=== PATIENT | male | born 1960 | race Caucasian/White ===

== ENCOUNTER 2018-02-16 20:18 | Observation (INO) ==
--- NOTE | 2018-02-16 20:51 | Emergency Department Note ---
Disposition Clinical Impression: Chest pain of uncertain etiology, Accelerated essential hypertension Nausea & vomiting Qualifiers: Vomiting type: unspecified Vomiting Intractability: unspecified Qualified Code( s): R11.2 - Nausea with vomiting, unspecified Migraine Qualifiers: Migraine type: without aura Status migrainosus presence: without status migrainosus Intractability: not intractable Qualified Code(s): G43.009 - Migraine without aura, not intractable, without status migrainosus Disposition: Admitted As Inpatient Condition: Good Time of Disposition: 22:52 General Adult HPI - General Chief complaint: ED Nausea/Vomiting/Diarrhea Stated complaint: high bp/vomiting Time Seen by Provider: 02/16/18 20:30 Source: patient Limitations: no limitations Nursing Notes Reviewed: Yes Vital Signs Reviewed: Yes - History of Present Illness HPI Narrative: Mr. Salazar, 57yo male, presents with 10 day history of "blood pressure problem. " Since onset, he has had constant dull headache with intermittent sharp stabbing located retro-orbital. He has associated weakness and chest heaviness which is otherwise difficult for him to provide additional information. He has had 6 episodes of emesis since 2 PM today (nonbilious, non-bloody). He saw his primary care provider this morning who doubled his hydralazine to 50 mg in doubled his spiral lactone to 50 mg. He took 25 mg of hydralazine his right lactone this morning. At 2 PM, he took an additional 50 mg of hydralazine and 25 mg spironolactone. Shortly after this, he had his first bout of emesis. In the past 2 days, patient has had several antihypertensive medication changes as both his primary care practitioner as well as top steep tender are tempting to manage his blood pressures. PMH: Hypertension, shortness sleep apnea. No history of CAD or ACS. Does have familial history of heart disease. Next ROS: Positive: As above Negative: Fever, chills, palpitations, diarrhea, constipation, trauma Pain Scale: 9 - Related Data Home Medications Medication Instructions Recorded Confirmed Aspirin [Adult Aspirin Regimen] 81 mg PO DAILY 02/17/18 02/17/18 Atorvastatin [Lipitor] 40 mg PO QAM 02/17/18 02/17/18 Cholecalciferol (D-3) [Vitamin D] 1,000 unit PO DAILY 02/17/18 02/17/18 Escitalopram [Lexapro] 20 mg PO HS 02/17/18 02/17/18 LORazepam [Ativan] 0.5 - 1 mg PO HS PRN 02/17/18 02/17/18 Lisinopril [Zestril] 40 mg PO QAM 02/17/18 02/17/18 Magnesium Oxide [Magnesium] 400 mg PO HS 02/17/18 02/17/18 Multivitamin [One Daily 1 tab PO DAILY 02/17/18 02/17/18 Multivitamin] Potassium Chloride [K-Tab ER] 20 meq PO TID 02/17/18 02/17/18 Testosterone Cypionate 200 mg IM Q2W 02/17/18 02/17/18 [Depo-Testosterone] Previous Rx's Medication Instructions Recorded amLODIPine [Norvasc] 10 mg PO DAILY #60 tablet 02/18/18 Allergies Allergy/AdvReac Type Severity Reaction Status Date / Time amlodipine AdvReac See Verified 02/17/18 10:16 Comments clonidine AdvReac See Verified 02/17/18 10:16 Comments All systems ED: reviewed and negative except as stated. Review of Systems: As Per HPI Past Medical History - Past Medical History Medical history: Reports: hypertension, other Psychiatric history: Reports: anxiety, depression - Social History Smoking Status: Never smoker Smokeless Tobacco Status: No Alcohol use: Reports: none Drug use: Reports: none Physical Exam Vital Signs Reviewed General: Patient is alert, oriented, and in no acute distress. Head: atraumatic, normocephalic Eye: normal appearance, patient has a dysphoria which is baseline. EOMI, no scleral icterus, no conjunctival injection. Eyes appear bloodshot. ENT: mucous membranes moist, normal external ear exam Neck: normal inspection, trachea midline, full ROM Chest: normal inspection, symmetric chest rise Respiratory: Good respiratory effort. Bilateral breath sounds are clear without wheezing, crackles, or rhonchi. Cardiovascular: Regular rate and rhythm. No clicks, rubs, gallops, or murmors. Normal heart sounds. Abdomen: Bowel sounds present normoactive x-4 quadrants. Abdomen is soft, nondistended, and nontender. No guarding or rebound. No organomegaly noted. Musculoskeletal: Spontaneously moving all extremities. Strength 5/5 and equal bilaterally in upper and lower extremity his. Skin: warm, dry, intact. Neuro: Alert and oriented x4. Sensation light touch intact. Negative heel to jara bilaterally. Psych: Patient's affect is appropriate for situation. - General Limitations: no limitations General appearance: alert, in no apparent distress Course Course Narrative: Intake blood pressure 225/99. Bedside blood pressure is 177/105. Patient continues to be symptomatic. Will attempt symptomatic management and evaluate for end organ damage. EKG dated 02/16/10 at 20:25 interpreted as sinus rhythm with rate of 67. LA 103 , QRS 90, QTC 418. Normal axis. LVH. Pathologic Q waves and lateral leads. T -wave inversions in leads V3-V6. Compared to previous EKG dated 02/04/2012 showing new T-wave changes in leads V3-V6. Clinically concerned that the patient has chest heaviness with associated nausea and vomiting. EKG shows pathologic Q waves with new T-wave changes. Troponin is normal. Discusses the patient, he agrees to admission for continued evaluation and management of his EKG changes to assess his cardiac risks. It is uncertain at this point whether his headache is caused by his hypertension , vomiting, or combination. His headache has improved improvement in his blood pressure. BP is currently 167 systolic without IV or oral antihypertensives; this was achieved with pain control. Will hold on antihypertensive medication at this time to avoid causing iatrogenic hypotension. I discussed the above the mean hospitalist, Dr. Rangel, who agrees to accept the patient for chest pain rule out ACS as well as continue management of his accelerated essential hypertension. Vital Signs Temperature 97.9 F 02/16/18 20:25 Pulse Rate 72 02/16/18 20:25 Respiratory Rate 20 02/16/18 20:25 Blood Pressure 225/99 02/16/18 20:25 O2 Sat by Pulse Oximetry 94 02/16/18 20:25 Temperature 98.2 F 02/18/18 06:46 Pulse Rate 48 02/18/18 06:46 Respiratory Rate 14 02/18/18 06:46 Blood Pressure 148/87 02/18/18 06:46 O2 Sat by Pulse Oximetry 93 02/18/18 06:46 Oxygen Delivery Oxygen Delivery Room Air Medical Decision Making - Medical Records Medical records reviewed: Yes I reviewed the patient's medical records. - Lab Data Lab results reviewed: Yes I reviewed the patient's lab results. Result diagrams: 02/17/18 03:10 02/17/18 03:10 Lab Results 02/16/18 02/16/18 02/16/18 Range/Units 21:00 21:00 21:17 WBC 12.4 H (4.3-11.1) K/mcL RBC 6.06 H (4.19-5.50) M/mcL Hgb 17.4 H (12.9-16.9) g/dL Hct 51.3 H (37.5-50.1) % MCV 84.7 (83.0-100.0) fL MCH 28.7 (28.0-33.3) pg MCHC 33.9 (31.6-35.5) g/dL RDW 14.4 (11.5-14.5) % Plt Count 250 (140-400) K/mcL MPV 10.6 (9.4-12.4) fL Immature Gran % 0.3 (0-4) % Seg Neutrophils % 85.7 % Lymphocytes % 8.7 % Monocytes % 4.9 % Eosinophils % 0.2 % Basophils % 0.2 % Neutrophils # 10.6 H (1.6-8.9) K/mcL Lymphocytes # 1.1 (0.6-4.6) K/mcL Monocytes # 0.6 (0.0-1.3) K/mcL Eosinophils # 0.0 (0.0-0.6) K/mcL Basophils # 0.0 (0.0-0.2) K/mcL Sodium 140 (136-145) mEq/L Potassium 3.3 L (3.5-5.1) mEq/L Chloride 104 (98-107) mEq/L Carbon Dioxide 25 (23-29) mEq/L BUN 11 (6-20) mg/dL Creatinine 0.94 (0.70-1.30) mg/dL Est GFR ( Amer) > 60 (> 60) Est GFR (Non-Af Amer) > 60 (> 60) BUN/Creatinine Ratio 12 (6-26) Glucose 117 H (70-105) mg/dL Calculated Osmolality 290 (280-300) Calcium 9.6 (8.6-10.3) mg/dL Troponin I < 0.03 (< 0.04) ng/mL Urine Color Yellow (Yellow) Urine Clarity Clear (Clear) Urine pH 7.5 (5.0-8.0) pH Units Ur Specific [place] 1.014 (1.010-1.025) Urine Protein Trace (Neg-Trace) mg/dL Urine Glucose (UA) Normal (Normal) mg/dL Urine Ketones 15 H (Negative) mg/dL Urine Blood Negative (Negative) Urine Nitrite Negative (Negative) Urine Bilirubin Negative (Negative) Urine Urobilinogen Normal (Normal) mg/dL Ur Leukocyte Esterase Negative (Negative) Urine Microscopic RBC 0-3 (0-3) per hpf Urine Microscopic WBC 0-3 (0-3) per hpf Ur Squamous Epith Cells Few (None-Few) per lpf Urine Bacteria None Seen (None-Few) per hpf Hyaline Casts None Seen (None-Few) per lpf - Radiology Data Radiology results reviewed: Yes I reviewed the patient's radiology results. Chest X-Ray 02/16/18 20:51 IMPRESSION: No acute abnormality detected. D/ / Sohail Tovar MD / Sohail Tovar MD Interpreting Provider: Sohail Tovar MD Head CT 02/16/18 20:53 IMPRESSION: No acute intracranial abnormality. D/ / Danelle Miller MD / Danelle Miller MD Interpreting Provider: Danelle Miller MD Echocardiogram 02/17/18 23:29 Impressions: Blood pressure at time of study 197/103 mmHg. LVEF 60%. Mild left ventricular diastolic dysfunction. Mild concentric left ventricular hypertrophy. Normal right ventricular structure and function. No significant valvular dysfunction. No pulmonary hypertension. Left Ventricular Wall Motion: Rest Echo Findings All wall segments showed normal motion. Findings: Study Quality * Technically adequate exam. ECG Findings * Normal sinus rhythm. Left Ventricle * LVEF 60%. * Mild left ventricular diastolic dysfunction. * Mild concentric left ventricular hypertrophy. Right Ventricle * Normal right ventricular structure and function. Left Atrium * Moderately dilated left atrium. Right Atrium * Normal right atrial size. Mitral Valve * Normal mitral valve structure. * No mitral stenosis. * No mitral regurgitation. Aortic Valve * No aortic regurgitation. * Aortic valve not well visualized. * No aortic stenosis. Tricuspid Valve * Tricuspid valve not well visualized. * No tricuspid regurgitation. Pulmonic Valve * Pulmonic valve is not well visualized. * No pulmonic stenosis. * No pulmonic regurgitation. Pulmonary Artery * Pulmonary artery not well visualized. Aorta * Normally sized aortic root. Pericardium * There is no pericardial effusion present. Interatrial Septum * No evidence of PFO by color Doppler. IVC * The IVC is not well evaluated. Attestation Statement - Attestation Attestation: I examined this patient and my medical decision-making was reviewed with the Resident Physician, Dr. Azar. I agree with the documented findings, disposition and treatment plan as described except to the extent set forth below. Pt is a 57 yo wm, with hx migraine GARCIA's and HTN who presents to the ER with c/o 10 d hx of labile BP and intermittent retroorbital GARCIA's with N/V x 2 today associated with worsening GARCIA's, and elev BP. Pt also with c/o L sided CP/press with assocd diaphoresis, N/V. Pt's has had frequent changes to his BP meds over past 10 d by both his PCP and [employer], resulting in labile BP's over past 10 days, which pt feels is contributing to frequent GARCIA's. I agree with pt's PE findings as documented. Elev BP on arrival to ED, but actively vomiting on arrival. Pt's EKG shows LVH, new T wave inversions laterally from previous EKG. Pt provided pain control and nausea meds, which improved sxs and improved BP, now 160's/90's. Pt CT brain wnl, reced ASA for ACS. Pt had lab eval, CXR overall unremarkable, with neg trop. Will admit for further eval of CP, elev BP, headache, N/V. Case d/w hospitalist.
[2018-02-16] MEDS ORDERED: Ondansetron 4 MG/2 ML VIAL IVP ONE (20:58)
[2018-02-16] MEDS ORDERED: *HR* FentaNYL (PF) 100 MCG/2 ML VIAL IVP ONE ×2 (20:58→23:13)
[2018-02-16 21:11] LABS: Basophils % 0.2 %; Eosinophils % 0.2 %; Hematocrit 51.3 % (37.5-50.1); Hemoglobin 17.4 g/dL (12.9-16.9); Immature Granulocytes % 0.3 % (0-4); Lymphocytes # 1.1 K/mcL (0.6-4.6); Lymphocytes % 8.7 %; Mean Corpuscular HGB Conc 33.9 g/dL (31.6-35.5); Mean Corpuscular Hemoglobin 28.7 pg (28.0-33.3); Mean Corpuscular Volume 84.7 fL (83.0-100.0); Mean Platelet Volume 10.6 fL (9.4-12.4); Monocytes # 0.6 K/mcL (0.0-1.3); Monocytes % 4.9 %; Neutrophils # 10.6 K/mcL (1.6-8.9); Platelet Count 250 K/mcL (140-400); Red Blood Count 6.06 M/mcL (4.19-5.50); Red Cell Distribution Width 14.4 % (11.5-14.5); Segmented Neutrophils % 85.7 %
[2018-02-16 21:27] LABS: Bilirubin,Urine Negative (Negative); Blood,Urine Negative (Negative); Clarity,Urine Clear (Clear); Color,Urine Yellow (Yellow); Glucose,Urine (UA) Normal (Normal); Ketones,Urine 15 mg/dL (Negative); Leukocyte Esterase,Urine Negative (Negative); Nitrite,Urine Negative (Negative); PH,Urine 7.5 pH Units (5.0-8.0); Protein,Urine Trace mg/dL (Neg-Trace); Specific Gravity,Urine 1.014 (1.010-1.025); Urobilinogen,Urine Normal (Normal)
[2018-02-16 21:29] LABS: Bacteria,Urine None Seen per hpf (None-Few); Hyaline Casts,Urine None Seen per lpf (None-Few); RBC,Urine 0-3 per hpf (0-3); Squamous Epithelial Cell,Urine Few per lpf (None-Few); WBC,Urine 0-3 per hpf (0-3)
[2018-02-16 21:32] LABS: BUN/Creatinine Ratio 12 (6-26); Blood Urea Nitrogen 11 mg/dL (6-20); Calcium 9.6 mg/dL (8.6-10.3); Carbon Dioxide 25 mEq/L (23-29); Chloride 104 mEq/L (98-107); Glucose 117 mg/dL (70-105); Osmolality,Calculated 290 (280-300); Potassium 3.3 mEq/L (3.5-5.1); Sodium 140 mEq/L (136-145); Troponin I < 0.03 ng/mL (< 0.04); eGFR For African Americans > 60 (> 60); eGFR For Non-African Americans > 60 (> 60)
[2018-02-16] MEDS ORDERED: 0.9 % Sodium Chloride 1,000 ML ONE (22:04)
[2018-02-16] MEDS ORDERED: 0.9 % Sodium Chloride 1,000 ML IVC SCH (22:15)
--- NOTE | 2018-02-16 23:25 | Internal Med History&Physical ---
Date of Encounter: 02/16/18 Time of Encounter: 23:23 Internal Medicine - H&P: HPI Chief complaint: Headache Admitted From: Emergency Dept Plans for Post Hospital Care: Home History of present illness: Mr. Salazar is a 57 year old male with history of hypertension, anxiety, depression who presents with what he describes as blood pressure issues. He also reports retro-orbital headach. He describes chest dull pain across the chest but no radiation that is on and off for the last 10 days. He has had some emesis today that is nonbloody since 2 PM. He saw his primary care physician this morning regarding the symptoms and elevated blood pressure and he had two of his BP meds doses doubled up. His BP in office was in the 200s systolically. He says about a month ago he was taken off HCTZ due to leg cramps from hypokalemia but no alternative was given. He takes a total of 3 antihypertensives and the only one he is able to remember is lisinopril. He says for 10 days, his BP is in the 180s-200s systolically. He continued to have elevated blood pressure at home despite taking extra doses today and decided to come in because of the vomiting. He says all of his symptoms are similar to symptoms he had previously with high BP. In the ED he was noted to be hypertensive with a blood pressure of 225/99 on presentation. Labs showed a white count of 12.4 with hemoglobin 17.4 and platelets 250. Potassium was 3.3. Abnormal urinalysis. Patient denies fever, chills, shortness breath, abdominal pain, diarrhea, constipation, urinary symptoms, or neurological symptoms. Head CT and chest x-ray were unremarkable. Past Med Surg Social Fam HX - Past Medical History Medical history: hypertension, other Psychiatric history: anxiety, depression - Social History Smoking Status: Never smoker Smokeless Tobacco Status: No Alcohol use: none Drug use: none Internal Medicine - H&P: Meds Oxycodone HCl/Acetaminophen [Percocet 5-325 mg Tablet] 1 each PO Q6HR #15 tablet 10/20/16 [Rx] 3 Allergy/AdvReac Type Severity Reaction Status Date / Time clonidine Allergy See Verified 10/20/16 11:29 Comments All Systems PM: A 10-system review of systems was performed and is negative for pertinent findings except as documented above in the HPI. Review of systems: All systems reviewed are negative except as mentioned above - Constitutional Vitals: Temp Pulse Resp BP Pulse Ox 97.9 F 75 18 169/101 96 02/16/18 20:25 02/16/18 21:57 02/16/18 21:57 02/16/18 21:57 02/16/18 21:57 Exam: GEN: NAD HEENT: AT, NC, No cyanosis, oral mucosa is moist, No JVD Lymphatics: No lymphadenoapthy Eyes: Extrocular muscles intact, anicteric CVS:RRR. S1, S2, No m/r/g RESP: CTAB ABD: Soft, NT, ND, +BS EXT: No edema, No rashes, 2+ DP NEURO: Nonfocal, CN II-XII intact, No focal motor or sensory deficits Psych: Cooperative, Not anxious or depressed Internal Med - H&P Results - Labs CBC & Chem 7: 02/16/18 21:00 02/16/18 21:00 Labs: Short CBC 02/16/18 Range/Units 21:00 WBC 12.4 H (4.3-11.1) K/mcL Hgb 17.4 H (12.9-16.9) g/dL Hct 51.3 H (37.5-50.1) % Plt Count 250 (140-400) K/mcL Neutrophils # 10.6 H (1.6-8.9) K/mcL BMP 02/16/18 21:00 Sodium 140 Potassium 3.3 L Chloride 104 Carbon Dioxide 25 BUN 11 Creatinine 0.94 Glucose 117 H Calcium 9.6 Cardiac Enzymes 02/16/18 Range/Units 21:00 Troponin I < 0.03 (< 0.04) ng/mL Urine 02/16/18 Range/Units 21:17 Urine Color Yellow (Yellow) Urine Clarity Clear (Clear) Urine pH 7.5 (5.0-8.0) pH Units Ur Specific [place] 1.014 (1.010-1.025) Urine Protein Trace (Neg-Trace) mg/dL Urine Glucose (UA) Normal (Normal) mg/dL - Impressions ITS Impressions Chest X-Ray 02/16/18 20:51 IMPRESSION: No acute abnormality detected. D/ / Sohail Tovar MD / Sohail Tovar MD Interpreting Provider: Sohail Tovar MD Head CT 02/16/18 20:53 IMPRESSION: No acute intracranial abnormality. D/ / Danelle Miller MD / Danelle Miller MD Interpreting Provider: Danelle Miller MD - Assessment and plan (1) Chest pain Current Visit: Yes Status: Acute Assessment and plan: Likely secondary to his uncontrolled hypertension. We will trend his cardiac enzymes. Put him on telemetry. Stress dose in the morning. Given EKG changes we will check echocardiogram as well. Check lipid panel and A1c for risk stratify patient. I will give him aspirin. Nothing by mouth after midnight. Qualifiers: Chest pain type: unspecified Qualified Code(s): R07.9 - Chest pain, unspecified (2) Abnormal EKG Current Visit: Yes Status: Acute Assessment and plan: T-wave inversions noted in V3 through V6 which are new. We will trend cardiac enzymes and check an echo. Stress test is ordered for tomorrow. (3) Accelerated essential hypertension Current Visit: Yes Status: Acute Assessment and plan: We will place patient on IV hydralazine when necessary. We will resume the patient's antihypertensives. Patient did not receive any antihypertensives in the ED and his blood pressure started coming down. He may need his home medications adjusted if he continues to have elevated blood pressure. (4) Nausea & vomiting Current Visit: Yes Status: Acute Assessment and plan: Unsure if this is related to uncontrolled hypertension versus ACS versus gastroenteritis. We will treat symptomatically for now. Will put patient on antiemetics and IV fluids for now. No abdominal pain on examination. Qualifiers: Vomiting type: unspecified Vomiting Intractability: unspecified Qualified Code(s): R11.2 - Nausea with vomiting, unspecified (5) Leukocytosis Current Visit: Yes Status: Acute Assessment and plan: I think part of this is reactive and dehydration. Hgb is elevated too. Will hydrate for now. No signs of an infection. Qualifiers: Leukocytosis type: unspecified Qualified Code(s): D72.829 - Elevated white blood cell count, unspecified (6) DVT prophylaxis Current Visit: Yes Status: Acute Assessment and plan: Heparin subcutaneous - Time Spent With Patient Total time spent is greater than 50% in coordination of care (as documented) at patient's floor/unit and/or counseling patient:
[2018-02-16] MEDS ORDERED: Ondansetron 4 MG/2 ML VIAL IVP PRN (23:29)
[2018-02-16] MEDS ORDERED: Naloxone 0.4 MG/ML INJ IVP PRN (23:30)
[2018-02-17] MEDS: Acetaminophen 325 MG TABLET PO PRN ×3 (01:43→21:27)
[2018-02-17] MEDS ORDERED: Aspirin 81 MG TAB.CHEW PO SCH (02:01)
[2018-02-17 03:25] LABS: Basophils % 0.3 %; Eosinophils % 0.3 %; Immature Granulocytes % 0.3 % (0-4); Lymphocytes # 1.3 K/mcL (0.6-4.6); Lymphocytes % 10.9 %; Mean Corpuscular HGB Conc 33.3 g/dL (31.6-35.5); Mean Corpuscular Volume 84.2 fL (83.0-100.0); Mean Platelet Volume 10.7 fL (9.4-12.4); Monocytes # 0.9 K/mcL (0.0-1.3); Monocytes % 7.2 %; Neutrophils # 9.7 K/mcL (1.6-8.9); Platelet Count 243 K/mcL (140-400); Red Blood Count 5.46 M/mcL (4.19-5.50); Red Cell Distribution Width 14.7 % (11.5-14.5)
[2018-02-17 03:27] LABS: Hemoglobin 15.3 g/dL (12.9-16.9)
[2018-02-17 03:46] LABS: BUN/Creatinine Ratio 13 (6-26); Blood Urea Nitrogen 13 mg/dL (6-20); Calcium 8.9 mg/dL (8.6-10.3); Carbon Dioxide 25 mEq/L (23-29); Chloride 106 mEq/L (98-107); Chol/HDL Ratio 4.1 (0-4.9); Cholesterol 132 mg/dL (< 200); Glucose 112 mg/dL (70-105); HDL Cholesterol 32 mg/dL (40-59); LDL Cholesterol,Calculated 84 mg/dL (0-99); Magnesium 2.1 mg/dL (1.6-2.6); Osmolality,Calculated 289 (280-300); Potassium 3.6 mEq/L (3.5-5.1); Sodium 139 mEq/L (136-145); Triglycerides 81 mg/dL (< 150); eGFR For African Americans > 60 (> 60); eGFR For Non-African Americans > 60 (> 60)
[2018-02-17] MEDS ORDERED: *HR* Metoprolol 5 MG/5 ML VIAL IVP ONE (03:59)
[2018-02-17] MEDS: *HR* Heparin 5,000 UNIT/ML VIAL SQ SCH ×3 (05:36→21:27)
[2018-02-17] MEDS: 0.9 % Sodium Chloride 1,000 ML IVC SCH ×2 (05:36→19:25)
[2018-02-17] MEDS ORDERED: Regadenoson 0.4 MG/5 ML SYRINGE IVP ONE (06:16)
[2018-02-17] MEDS ORDERED: hydrALAZINE 25 MG TABLET PO SCH ×2 (09:00→16:00)
[2018-02-17] MEDS: Aspirin Enteric Coated 81 MG Tablet PO SCH (09:37)
[2018-02-17] MEDS: Lisinopril 20 MG TABLET PO SCH ×2 (09:38→21:27)
[2018-02-17] MEDS: *HR* LORazepam 0.5 MG TABLET PO SCH ×2 (09:38→21:27)
[2018-02-17] MEDS: Magnesium Oxide 400 MG TABLET PO SCH (09:38)
[2018-02-17] MEDS: Cholecalciferol (D-3) 1,000 UNIT TABLET PO SCH (09:38)
[2018-02-17] MEDS ORDERED: Ketorolac 30 MG/ML VIAL IVP ONE (10:41)
[2018-02-17] MEDS ORDERED: Metoclopramide 10 MG/2 ML VIAL IVP ONE (10:41)
--- NOTE | 2018-02-17 12:24 | Internal Med Progress Note ---
Date of Encounter: 02/17/18 Time of Encounter: 12:33 - Assessment and plan (1) Accelerated essential hypertension Current Visit: Yes Status: Acute Assessment and plan: Has known history of hypertension. Patient reported BP well-controlled until BP medications were recently changed; amlodipine was stopped due to leg cramps and HCTZ was stopped due to hypokalemia. Of note, amlodipine listed as allergy however patient reported amlodipine was stopped due to leg cramps. PCP started spironolactone and hydralazine and patient reports BP has been uncontrolled since that time. Additionally patient reports headache, diaphoresis and jaw pain occurs shortly after taking hydralazine. Stop spironolactone and hydralazine. Restart amlodipine, cont ARYAN. Monitor BP and titrate PRN. PRN IV hydralazine (2) Chest pain Current Visit: Yes Status: Acute Assessment and plan: Serial troponin negative. TTE with EF 60%, mild diastolic dysfunction, no significant valvular dysfunction and no wall motion abnormalities. Nuclear medicine stress test perfusion imaging negative for ischemia or infarct. Suspect chest pain secondary to uncontrolled BP. Qualifiers: Chest pain type: unspecified Qualified Code(s): R07.9 - Chest pain, unspecified (3) Migraine Current Visit: Yes Status: Acute Assessment and plan: in the setting of uncontrolled BP. Neurologically intact. Treating BP as noted above. Headache cocktail X 1 dose. Qualifiers: Migraine type: without aura Status migrainosus presence: without status migrainosus Intractability: not intractable Qualified Code(s): G43.009 - Migraine without aura, not intractable, without status migrainosus (4) Abnormal EKG Current Visit: Yes Status: Acute Assessment and plan: T-wave inversions noted in V3 through V6 which are new. Serial troponin negative. TTE with EF 60%, mild diastolic dysfunction, no significant valvular dysfunction and no wall motion abnormalities. Nuclear medicine stress test perfusion imaging negative for ischemia or infarct. (5) Nausea & vomiting Current Visit: Yes Status: Acute Assessment and plan: Suspect secondary to headache/migraine. Supportive care for now. Qualifiers: Vomiting type: unspecified Vomiting Intractability: unspecified Qualified Code(s): R11.2 - Nausea with vomiting, unspecified (6) Leukocytosis Current Visit: Yes Status: Acute Assessment and plan: mild. WBC 12K. Derrek reactive, no obvious infectious source. Monitor repeat CBC Qualifiers: Leukocytosis type: unspecified Qualified Code(s): D72.829 - Elevated white blood cell count, unspecified (7) DVT prophylaxis Current Visit: Yes Status: Acute Assessment and plan: Heparin - Time Spent With Patient Total time spent is greater than 50% in coordination of care (as documented) at patient's floor/unit and/or counseling patient: - Subjective Interval history: Seen and examined at bedside, patient is new to me. Says he has a headache, feels flushed and has some jaw pain whihc he thinks is due to the hydralazine. Has some chest tightness which he thinks is secondary to BP - Constitutional Vitals: Temp Pulse Resp BP Pulse Ox 98.1 F 83 20 180/94 93 02/17/18 10:41 02/17/18 10:41 02/17/18 10:41 02/17/18 10:41 02/17/18 10:41 General appearance: Present: mild distress (appears is uncomfortable), A&O X 3, morbidly obese - Head Head exam: Present: atraumatic, normocephalic - Eye Eye exam: Present: PERRL, conjuntiva pink, sclera anicteric Pupils: Present: PERRL - Neck Neck exam general surgery: Present: supple, trachea midline. Absent: lymphadenopathy - Respiratory Respiratory exam: Present: CTAB. Absent: accessory muscle use, rales, rhonchi, wheezes - Cardiovascular Cardiovascular exam: Present: RRR, +S1, +S2. Absent: diastolic murmur, gallop, rubs, systolic murmur - GI/Abdominal GI/Abdominal exam: Present: normal bowel sounds, soft, no peritoneal signs. Absent: distended, tenderness - Extremities Exam Extremities exam: Present: warm, radial pulses palpable and symmetrical. Absent : calf tenderness, cyanotic, pedal edema - Neurological Exam Neurological exam: Present: CN II-XII intact, oriented X3, no focal deficits. Absent: pronater drift, facial droop, speech deficit - Skin Skin exam: Present: dry, intact Internal Medicine: Result - Labs CBC & Chem 7: 02/17/18 03:10 02/17/18 03:10 Labs: Short CBC 02/17/18 Range/Units 03:10 WBC 12.0 H (4.3-11.1) K/mcL Hgb 15.3 D (12.9-16.9) g/dL Hct 46.0 (37.5-50.1) % Plt Count 243 (140-400) K/mcL Neutrophils # 9.7 H (1.6-8.9) K/mcL BMP 02/17/18 03:10 Sodium 139 Potassium 3.6 Chloride 106 Carbon Dioxide 25 BUN 13 Creatinine 0.99 Glucose 112 H Calcium 8.9 Cardiac Enzymes 02/17/18 Range/Units 03:10 Troponin I 0.03 (< 0.04) ng/mL - Impressions Impressions Echocardiogram 02/17/18 23:29 Impressions: Blood pressure at time of study 197/103 mmHg. LVEF 60%. Mild left ventricular diastolic dysfunction. Mild concentric left ventricular hypertrophy. Normal right ventricular structure and function. No significant valvular dysfunction. No pulmonary hypertension. Left Ventricular Wall Motion: Rest Echo Findings All wall segments showed normal motion. Findings: Study Quality * Technically adequate exam. ECG Findings * Normal sinus rhythm. Left Ventricle * LVEF 60%. * Mild left ventricular diastolic dysfunction. * Mild concentric left ventricular hypertrophy. Right Ventricle * Normal right ventricular structure and function. Left Atrium * Moderately dilated left atrium. Right Atrium * Normal right atrial size. Mitral Valve * Normal mitral valve structure. * No mitral stenosis. * No mitral regurgitation. Aortic Valve * No aortic regurgitation. * Aortic valve not well visualized. * No aortic stenosis. Tricuspid Valve * Tricuspid valve not well visualized. * No tricuspid regurgitation. Pulmonic Valve * Pulmonic valve is not well visualized. * No pulmonic stenosis. * No pulmonic regurgitation. Pulmonary Artery * Pulmonary artery not well visualized. Aorta * Normally sized aortic root. Pericardium * There is no pericardial effusion present. Interatrial Septum * No evidence of PFO by color Doppler. IVC * The IVC is not well evaluated. Consult Discharge Plan - Plan Referrals: Clarita Woody, DOUGLAS [Primary Care Provider] -
[2018-02-17] MEDS: amLODIPine 5 MG TABLET PO SCH (14:24)
[2018-02-17 16:10] LABS: Estimated Average Glucose 100 mg/dl; Hemoglobin A1C 5.1 %
[2018-02-18] MEDS: 0.9 % Sodium Chloride 1,000 ML IVC SCH (03:37)
[2018-02-18] MEDS: *HR* Heparin 5,000 UNIT/ML VIAL SQ SCH (05:09)
[2018-02-18 06:47] VITALS: BP 148/87
[2018-02-18] MEDS: Aspirin Enteric Coated 81 MG Tablet PO SCH (08:30)
[2018-02-18] MEDS: amLODIPine 5 MG TABLET PO SCH (08:30)
[2018-02-18] MEDS: Magnesium Oxide 400 MG TABLET PO SCH (08:30)
[2018-02-18] MEDS: Lisinopril 20 MG TABLET PO SCH (08:30)
[2018-02-18] MEDS: Cholecalciferol (D-3) 1,000 UNIT TABLET PO SCH (08:30)
[2018-02-18] MEDS: *HR* LORazepam 0.5 MG TABLET PO SCH (08:30)
--- NOTE | 2018-02-18 08:35 | Discharge Summary ---
Date of Encounter: 02/18/18 Time of Encounter: 08:32 - Discharge Diagnosis (1) Accelerated essential hypertension Priority: Primary Status: Acute Assessment and Plan: Has known history of hypertension. Patient reported BP had been well- controlled until BP medications were recently changed; amlodipine was stopped due to leg cramps and HCTZ was stopped due to hypokalemia. Of note, amlodipine listed as allergy however patient reported amlodipine was stopped due to leg cramps. PCP started spironolactone and hydralazine and patient reported BP has been uncontrolled since that time. Additionally patient reports headache, diaphoresis and jaw pain occurs shortly after taking hydralazine. BP significantly improved with restarting amlodipine and stopping spironolactone and hydralazine. Discharge home on amlodipine and ARYAN. Recommend follow-up with PCP within 1 week for BP recheck. (2) Chest pain Priority: Primary Status: Acute Assessment and Plan: Serial troponin negative. TTE with EF 60%, mild diastolic dysfunction, no significant valvular dysfunction and no wall motion abnormalities. Nuclear medicine stress test perfusion imaging negative for ischemia or infarct. Suspect chest pain secondary to uncontrolled BP. Chest pain resolved at time of discharge Qualifiers: Chest pain type: unspecified Qualified Code(s): R07.9 - Chest pain, unspecified (3) Migraine Priority: Primary Status: Acute Assessment and Plan: in the setting of uncontrolled BP. Neurologically intact. Headache resolved with headache cocktail and controlling BP Qualifiers: Migraine type: without aura Status migrainosus presence: without status migrainosus Intractability: not intractable Qualified Code(s): G43.009 - Migraine without aura, not intractable, without status migrainosus (4) Abnormal EKG Priority: Primary Status: Acute Assessment and Plan: T-wave inversions noted in V3 through V6 which are new. Serial troponin negative. TTE with EF 60%, mild diastolic dysfunction, no significant valvular dysfunction and no wall motion abnormalities. Nuclear medicine stress test perfusion imaging negative for ischemia or infarct. No further cardiac work-up/ testing indicated at this time (5) Nausea & vomiting Priority: Primary Status: Acute Assessment and Plan: Suspect secondary to headache/migraine. Resolved with treating BP and headache. Qualifiers: Vomiting type: unspecified Vomiting Intractability: unspecified Qualified Code(s): R11.2 - Nausea with vomiting, unspecified (6) Leukocytosis Priority: Primary Status: Acute Assessment and Plan: mild. WBC 12K. Suspect reactive, no obvious infectious source. Qualifiers: Leukocytosis type: unspecified Qualified Code(s): D72.829 - Elevated white blood cell count, unspecified Hospital course: Please see assessment and plan for hospital course Discharge discussed with: patient (Seen and examined at bedside. Says he feels much better today, slept well last night. No headache, no N/V. Tolerating amlodipine without adveres effects. Wants to go home today. No CP or SOB ) - Time Spent with Patient Total time spent providing and/or coordinating discharge services: - Discharge Medications Prescriptions: amLODIPine [Norvasc] 10 mg PO DAILY #60 tablet Home Medications: Aspirin [Adult Aspirin Regimen] 81 mg PO DAILY 02/17/18 [History] Atorvastatin [Lipitor] 40 mg PO QAM 02/17/18 [History] Cholecalciferol (D-3) [Vitamin D] 1,000 unit PO DAILY 02/17/18 [History] Escitalopram [Lexapro] 20 mg PO HS 02/17/18 [History] LORazepam [Ativan] 0.5 - 1 mg PO HS PRN 02/17/18 [History] Lisinopril [Zestril] 40 mg PO QAM 02/17/18 [History] Magnesium Oxide [Magnesium] 400 mg PO HS 02/17/18 [History] Multivitamin [One Daily Multivitamin] 1 tab PO DAILY 02/17/18 [History] Potassium Chloride [K-Tab ER] 20 meq PO TID 02/17/18 [History] Testosterone Cypionate [Depo-Testosterone] 200 mg IM Q2W 02/17/18 [History] amLODIPine [Norvasc] 10 mg PO DAILY #60 tablet 02/18/18 [Rx] Allergies/Adverse Reactions: 3 Allergy/AdvReac Type Severity Reaction Status Date / Time amlodipine AdvReac See Verified 02/17/18 10:16 Comments clonidine AdvReac See Verified 02/17/18 10:16 Comments Date of admission: 02/17/18 00:01 Primary care physician: Clarita Woody CNP - Constitutional Vitals: Temp Pulse Resp BP Pulse Ox 98.2 F 48 14 148/87 93 02/18/18 06:46 02/18/18 06:46 06/15/18 06:46 02/18/18 06:46 02/18/18 06:46 General appearance: Present: A&O X 3, morbidly obese - Head Head exam: Present: atraumatic, normocephalic - Eye Eye exam: Present: PERRL, conjuntiva pink, sclera anicteric Pupils: Present: PERRL - Neck Neck exam general surgery: Present: supple, trachea midline. Absent: lymphadenopathy - Respiratory Respiratory exam: Present: CTAB. Absent: accessory muscle use, rales, rhonchi, wheezes - Cardiovascular Cardiovascular exam: Present: RRR, +S1, +S2. Absent: diastolic murmur, gallop, rubs, systolic murmur - GI/Abdominal GI/Abdominal exam: Present: normal bowel sounds, soft, no peritoneal signs. Absent: distended, tenderness - Extremities Exam Extremities exam: Present: warm, radial pulses palpable and symmetrical. Absent : calf tenderness, cyanotic, pedal edema - Neurological Exam Neurological exam: Present: CN II-XII intact, oriented X3, no focal deficits. Absent: pronater drift, facial droop, speech deficit - Skin Skin exam: Present: dry, intact - Patient Status Disposition: Home, Self-Care Condition: Good Functional capacity at discharge: independent ambulation Overall status at discharge: patient is back to baseline - Discharge Instructions Instructions: Amlodipine (By mouth), Heart Healthy Diet (DC), Hypertension (DC) Follow Up With: Clarita Woody CNP [Primary Care Provider] - 02/25/18 8:00 am - Diet and Activity Activity: increase activity as tolerated Diet: low fat, low cholesterol, low salt diet
--- NOTE | 2018-02-20 20:42 | Electrocardiograph Report ---
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
== END 2018-02-18 10:03 | disposition home or self-care (01) ==
LOC: 3BNU 20:18 → EMEROO 20:18 → 3BNU 02-17 00:53
PROVIDERS: ADMIT Family Medicine; ATTEND Family Medicine